=== PATIENT | female | born 1950 | race Caucasian/White ===

== ENCOUNTER 2019-05-21 09:44 | Day surgery (SDC) | payer OTHER, MEDICARE ==
[2019-05-18 10:25] VITALS: BMI 36.0
[2019-05-21] MEDS ORDERED: PROPOFOL 20 ML ONE (11:55)
[2019-05-21 12:39] VITALS: TEMP 97.3
[2019-05-21 13:27] VITALS: BP 122/67; PULSE 70
--- NOTE | 2019-05-23 17:08 | PATH ---
Surgical Pathology Report Patient Name: [facility]. Rec. #: [id number] /Age/Gender: 1950 (Age: 69) / F Account: [id number] Location: [facility] Taken: 05/21/2019 Received: 05/21/2019 Reported: 05/23/2019 Physicians: Easton Massey M.D. Specimen(s) Received A: SECOND PORTION DUODENUM B: GASTRIC ANTRUM C: GASTRIC POLYPS Clinical History A GERD, family history colon cancer Postoperative diagnosis: Gastritis, gastric polyps, diverticulosis Final Diagnosis A. DUODENUM, SECOND PORTION, BIOPSY: DUODENAL MUCOSA WITHOUT SIGNIFICANT PATHOLOGIC FINDINGS. B. GASTRIC ANTRUM, BIOPSY: GASTRIC ANTRAL MUCOSA WITH MILD CHRONIC GASTRITIS. IMMUNOHISTOCHEMICAL STAIN FOR H. PYLORI IS NEGATIVE. C. GASTRIC POLYPS, BIOPSY: FUNDIC GLAND POLYP(S). IMMUNOHISTOCHEMICAL STAIN FOR H. PYLORI IS NEGATIVE. Positive and negative controls (internal if applicable) show appropriate results. Electronically Signed Mariangel Ruvalcaba M.D. Gross Description A. Received in formalin, labeled "biopsy second portion of duodenum" are 2 ferrer, irregular portions of soft tissue averaging 0.3 cm. in greatest dimension. The specimens are submitted in toto in one cassette. B. Received in formalin, labeled "biopsy gastric antrum" are 2 ferrer, irregular portions of soft tissue measuring 0.3 and 0.4 cm. in greatest dimension. The specimens are submitted in toto in one cassette. C. Received in formalin, labeled "biopsy gastric polyps" are 3 ferrer, irregular portions of soft tissue ranging from 0.1-0.4 cm. in greatest dimension. The specimens are submitted in toto in one cassette. /05/22/2019 [facility]05/22/2019
== END 2019-05-21 13:10 | disposition home or self-care (01) ==
LOC: FASU-ENDO 09:44
PROVIDERS: ATTEND Internal Medicine Gastroenterology
PROC: 0DB98ZX Excision of Duodenum, Via Natural or Artificial Opening Endoscopic, Diagnostic (ICD-10-PCS; 2019-05-21)
PROC: 0DB68ZX Excision of Stomach, Via Natural or Artificial Opening Endoscopic, Diagnostic (ICD-10-PCS; 2019-05-21)
PROC: 0DJD8ZZ Inspection of Lower Intestinal Tract, Via Natural or Artificial Opening Endoscopic (ICD-10-PCS; principal; 2019-05-21 12:02)
DX: Z12.11 Encounter for screening for malignant neoplasm of colon (principal); Z80.0 Family history of malignant neoplasm of digestive organs; K57.30 Diverticulosis of large intestine without perforation or abscess without bleeding; K31.7 Polyp of stomach and duodenum; K29.50 Unspecified chronic gastritis without bleeding
CPT/HCPCS: 43239; G0105; 88305-TC; 88342-TC

== ENCOUNTER 2024-07-29 13:40 | Emergency (ER) | payer MEDICARE, OTHER ==
[2024-07-29 14:09] VITALS: BP 147/72; PULSE 75; RESP 16; TEMP 98.4; BMI 35.8
[2024-07-29] MEDS ORDERED: ACETAMINOPHEN 500 MG TABLET (FP) ONE (14:26)
[2024-07-29] MEDS: ACETAMINOPHEN 500 MG TABLET (FP) PO ONE ×2 (14:55→17:38)
[2024-07-29] MEDS ORDERED: CycloBENZAprine HCL 10 MG TABLET (FP) ONE (15:03)
[2024-07-29] MEDS: CycloBENZAprine HCL 10 MG TABLET (FP) PO ONE (15:08)
[2024-07-29] MEDS ORDERED: ACETAMINOPHEN 325 MG TABLET (FP) ONE (17:34)
== END 2024-07-29 18:07 | disposition home or self-care (01) ==
LOC: JER 13:40
DX: M94.0 Chondrocostal junction syndrome [Tietze] (principal); V89.2XXA Person injured in unspecified motor-vehicle accident, traffic, initial encounter
CPT/HCPCS: 70450-TC; 71045-TC-FY; 72125-TC; 72170-TC-FY; 93005; 93010; 99285-25